=== PATIENT | male | born 1955 | race Caucasian/White ===

== ENCOUNTER 2025-07-30 08:19 | Emergency (ER) | payer MEDICARE ==
[~2025-07-30] VITALS: Ht 175.3 cm; Wt 96.3 kg
[2025-07-30] MEDS ORDERED: ELIQUIS2.5 MG PO (08:37)
[2025-07-30 08:39] LABS: BASOPHILS 0.4 % (0.2-1.2); EOSINOPHILS 4.6 % (0.8-7.0); LYMPHOCYTES 39.5 % (21.8-53.1); MCH 30.9 PG (25.7-32.2); MCHC 33.3 g/dL (32.3-36.5); MCV 92.7 fL (79.0-92.2); MONOCYTES 8.6 % (5.3-12.2); NEUTROPHILS 46.7 % (34.0-67.9); RBC 5.37 M/uL (4.63-6.08)
[2025-07-30] MEDS ORDERED: SODIUM CHLORIDE 0.9% 1,000 ML IV PRN (08:45)
[2025-07-30] MEDS ORDERED: ELIQUIS5 MG PO (08:48)
[2025-07-30] MEDS ORDERED: METOPROLOL SUCC50 MG PO (08:48)
[2025-07-30] MEDS ORDERED: VIAGRA100 MG PO (08:49)
[2025-07-30] MEDS ORDERED: TIMOLOL MALEATE5 M3 OP (08:49)
[2025-07-30] MEDS ORDERED: CELEBREX50 MG PO (08:49)
[2025-07-30] MEDS ORDERED: XALATAN2.5 ML OPTH (08:49)
[2025-07-30 08:51] LABS: INR 1.06 (0.80-1.30); PROTIME 13.0 Sec (11.2-14.2)
[2025-07-30 09:02] LABS: ALT (SGPT) 16.0 U/L (14-59); AST (SGOT) 11.0 U/L (15-37); GLOMERULAR FILTRATION RATE,EST 94.0 mL/min (>60); PROTEIN, TOTAL 7.8 g/dL (6.4-8.2); TSH, 3RD GENERATION 2.072 uIU/mL (0.358-3.740); UREA NITROGEN 13.0 mg/dL (7-18)
[2025-07-30 10:48] VITALS: BP 120/70
--- NOTE | 2025-07-30 19:41 | EKG ---
[facility] [address] [facility] [place], [place] [address] Signed Atrial fibrillation with rapid ventricular response Nonspecific ST abnormality Abnormal QRS-T angle, consider primary T wave abnormality Abnormal ECG No previous ECGs available Confirmed by Mustapha Arita DO ([id number]) on 07/30/2025 7:41:44 PM Electronically Signed By: MUSTAPHA ARITA DO 07/30/251940 PATIENT NAME: JAZZ KAN AUTUMN Electrocardiogram DATE OF : 53 PHYSICIAN: MUSTAPHA ARITA DO REPORT #: [id number] REPORT IS CONFIDENTIAL AND NOT TO BE RELEASED WITHOUT AUTHORIZATION
--- NOTE | 2025-07-30 19:42 | EKG ---
[facility] [address] [facility] [place] [address] Signed Sinus rhythm with premature supraventricular complexes Nonspecific ST abnormality Abnormal ECG When compared with ECG of 30-JUL-2025 08:26, (Unconfirmed) Sinus rhythm has replaced Atrial fibrillation Vent. rate has decreased BY [address] elevation now present in Inferior leads ST less depressed in Lateral leads Nonspecific T wave abnormality has replaced inverted T waves in Inferior leads Confirmed by Breana Arita DO ([id number]) on 07/30/2025 7:42:04 PM Electronically Signed By: BREANA ARITA DO 07/30/251941 PATIENT NAME: JAZZ KAN Electrocardiogram DATE OF : 53 PHYSICIAN: BREANA ARITA DO REPORT #: [id number] REPORT IS CONFIDENTIAL AND NOT TO BE RELEASED WITHOUT AUTHORIZATION
== END 2025-07-30 10:47 | disposition home or self-care (01) ==
LOC: ED 08:19
PROVIDERS: Emergency Medicine
DX: I48.91 Unspecified atrial fibrillation (principal); Z88.0 Allergy status to penicillin; Z79.01 Long term (current) use of anticoagulants; Z79.899 Other long term (current) drug therapy
CPT/HCPCS: 36415; 71045; 80053; 84443; 85025; 85610; 92960; 93005; 93010; 94799; 96374; 99285-25; J2704; J7030